=== PATIENT | male | born 2000 | race Two or more races ===

== ENCOUNTER 2025-04-28 04:39 | Emergency (ER) | payer MEDICAID, SELFPAY ==
[2025-04-28 04:50] VITALS: BP 119/84; PULSE 88; RESP 19; TEMP 36.7; O2SAT 100
--- NOTE | 2025-04-28 04:51 | EKG_ITS ---
[facility] Test Date: 2025-04-28 Pat Name: CHRISTIN MÉNDEZ Department: Room: - Gender: Male Pulmonology Technician: : [id number] Requested By: Rick Wilkins Order Number: [id number] Reading MD: Rick Wilkins Measurements Intervals Bruce Rate: 85 P: 80 FL: 157 QRS: 73 QRSD: 86 T: 57 QT: 345 QTc: 410 Interpretive Statements SINUS RHYTHM POSSIBLE LEFT ATRIAL ENLARGEMENT [-0.1mV P-WAVE IN V1/V2] ST ELEVATION, PROBABLY EARLY REPOLARIZATION [ST ELEVATION WITH NORMALLY INFLECTED T-WAVE] No previous ECG available for comparison /store/S0/[id number].pdf
--- NOTE | 2025-04-28 05:16 | XR_ITS ---
Examination: PA chest single view Technique: Upright PA chest single view Date and time: April 28, 2025, 0519 hrs. Indications: Patient fell today with into the chest, chest pain. Findings: Normal heart size. No pneumothorax. Clavicles ribs appear intact Impression: No pneumothorax pulmonary contusion or hemothorax.
--- NOTE | 2025-04-28 05:16 | XR_ITS ---
Examination: Shoulder,left, 3 views Technique: Shoulder AP internal rotation, AP external rotation, Y view shoulder, 3 views Exam date and time :There is 2024 hrs. Indications: Patient fell today with injury to the shoulder, shoulder pain. Findings: No shoulder fracture or dislocation Minimal 2 mm offset at the AC joint Impression: 2 mm offset at the AC joint, clinical correlation advised
--- NOTE | 2025-04-28 05:17 | PD.EDRME ---
Rapid Medical Screening Exam [facility] Arrival date/time: 04/28/25 04:39 25M with history of marijuana use presents to ED with syncopal episode while playing video games in his room today. Patient woke up about 30 min later in the bathroom with EMS. Patient refused transport at the time. Patient states this has happened before and patient had a work-up in [place], but doesn't know why he faints. Patient complaints of head, L face/jaw, shoulder, and back pain because he states he fell to the left side. Chief Complaint: Syncope / Near Syncope Vital signs: Vital Signs Temperature 98.1 F 04/28/25 04:50 Pulse Rate 88 04/28/25 04:50 Respiratory Rate 19 04/28/25 04:50 Blood Pressure 119/84 04/28/25 04:50 Pulse Oximetry (%) 100 04/28/25 04:50 Oxygen Delivery Method Room Air 04/28/25 04:50
[2025-04-28 05:52] LABS: Basophils # (Auto) 0.1 Thou/mm3 (0.0-0.2); Basophils % (Auto) 0 % (0-2.5); Eosinophils # (Auto) 0.0 Thou/mm3 (0.0-0.5); Eosinophils % (Auto) 0 % (0-10); Hematocrit 48.7 % (41.0-53.0); Hemoglobin 17.1 g/dL (13.5-16.0); Immature Granulocytes Auto 0.15 Thou/mm3 (0.00-0.00); Lymphocytes # (Auto) 1.5 Thou/mm3 (1.0-4.8); Lymphocytes % (Auto) 8 % (10-50); Mean Corpuscular HGB Conc 35.1 g/dl (31.0-37.0); Mean Corpuscular Hemoglobin 28.8 pg (25.0-35.0); Mean Corpuscular Volume 82 fL (80-100); Monocytes # (Auto) 1.7 Thou/mm3 (0.0-0.8); Monocytes % (Auto) 9 % (0-12); Neutrophils # (Auto) 15.6 Thou/mm3 (1.8-7.7); Neutrophils % (Auto) 82 % (37-80); Nucleated Red Blood Cell # 0.00 Thou/mm3 (0.00-0.00); Nucleated Red Blood Cell % 0 /100 WBC (0); Platelet Count 338 Thou/mm3 (140-440); RDW Standard Deviation 42.7 fL (35.1-43.9); Red Blood Count 5.94 Miln/mm3 (4.50-5.90); White Blood Count 19.1 Thou/mm3 (3.8-10.6)
[2025-04-28 06:21] LABS: Collection Type, Urine Clean Catch; Squamous Epithelial Cell,Urine 0 /hpf (0-5)
--- NOTE | 2025-04-28 06:29 | XR_ITS ---
Examination: CT brain head without contrast. 2-D sagittal coronal reconstructions Date and time of exam:April 28, 2025, 1841 hrs. Indications: Ground-level fall today 30 minutes ago with loss of consciousness pain in the left side of the head CTDI: vol (mGy):47.3 DLP: (mGycm):925 Technique: Multiple CT axial sections of the brain have been obtained, 5 mm slice thickness. Contrast has not been administered. 2-D sagittal, coronal reconstructions have been obtained Low dose protocols were performed. One or more of the following dose reduction techniques were used; automated exposure control, adjustment of the mA and/or KV according to patient size, use of iterative reconstruction technique. Findings: No significant ventricular enlargement. Intra-axial or extra-axial hemorrhage density is not seen. No mass effect or midline shift Basal cisterns are not remarkable. Fourth ventricle is midline. Cranial vault intact. Impression: Negative for acute hemorrhage, mass effect or midline shift
[2025-04-28 06:36] LABS: Amphetamine/Methamp Scrn,U Negative (Negative); Barbiturate Screen,Urine Negative (Negative); Benzodiazepines Screen,Urine Negative (Negative); Benzoylecgonine Screen, Ur Negative (Negative); Fentanyl Screen,Urine Negative (Negative); Opiate Screen,Urine Negative (Negative); THC Screen,Urine Positive (Negative)
[2025-04-28 06:36] LABS: Alanine Aminotransferase 21 U/L (10-49); Albumin, Serum 5.2 gm/dL (3.5-5.0); Albumin/Globulin Ratio 2.1 (1.2-2.2); Alcohol, Blood Medical < 3.0 mg/dL (0-10.0); Alkaline Phosphatase 87 U/L (46-116); Anion Gap 13 (7-16); Aspartate Amino Transferase 39 U/L (0-34); BUN/Creatinine Ratio 11 Ratio (12-20); Bilirubin,Total 0.6 mg/dL (0.3-1.2); Blood Urea Nitrogen 11 mg/dL (9-23); Calcium 9.7 mg/dL (8.3-10.6); Calcium (Corrected) 9.7 mg/dL (8.5-10.1); Carbon Dioxide 18.8 mMol/L (20.0-31.0); Chloride 107 mMol/L (98-107); Creatinine (Component) 1.0 mg/dL (0.6-1.3); Estimated Creatinine Clearance 86.9 mL/min (>60); Globulin 2.5 gm/dL (2.3-3.5); Glucose 80 mg/dL (74-106); Osmolality,Calculated 275 (275-295); Potassium 3.5 mMol/L (3.4-5.1); Sodium 139 mMol/L (136-145); Total Protein 7.7 gm/dL (5.7-8.2); Troponin I < 0.020 ng/mL (0.0-0.045); eGFR > 60 See Note
[2025-04-28 06:47] LABS: Amorphous Crystals,Urine Present (Absent); Bilirubin,Urine Negative (Negative); Blood,Urine 1+ (Negative); Clarity,Urine Turbid (Clear/Hazy); Color,Urine Lt-Yellow (Lt Yel-Yel); Culture Indicated,Urine Not Indicated; Glucose, Urine Negative (Negative); Ketones,Urine 2+ (Negative); Leukocyte Esterase,Urine Negative (Negative); Nitrite,Urine Negative (Negative); PH,Urine 6.0 (5.0-7.0); Protein,Urine Trace (Neg - Trace); RBC,Urine 4 /hpf (0-3); Specific Gravity,Urine 1.025 (1.001-1.035); Urobilinogen,Urine Negative mg/dL (0.0-1.0); WBC,Urine 5 /hpf (0-5)
[2025-04-28 08:01] VITALS: BP 118/81; PULSE 86; RESP 18; TEMP 36.7; O2SAT 100
[2025-04-28 08:10] VITALS: BP 118/81; PULSE 61; RESP 16; TEMP 36.5; O2SAT 98
--- NOTE | 2025-04-28 08:16 | EDNOTE_ITS ---
ED Syncope RME/HPI General Chief Complaint: Syncope / Near Syncope Stated Complaint: LEFT SHOULDER, HEAD AND BACK PAIN AFTER FAINTING Time Seen by Provider: 04/28/25 08:17 Arrival date/time: 04/28/25 04:39 RME / HPI RME / HPI narrative: 04/28/25 04:39 25M with history of marijuana use presents to ED with syncopal episode while playing video games in his room today. Patient woke up about 30 min later in the bathroom with EMS. Patient refused transport at the time. Patient states this has happened before and patient had a work-up in [place], but doesn't know why he faints. Patient complaints of head, L face/jaw, shoulder, and back pain because he states he fell to the left side. DR. YANICK MA ED EVALUATION 25 year old male with no chronic medical history presents to the ED for evaluation following syncopal episode today. States he was sitting on a chair playing video games and next thing he recalls is waking on the floor surrounded by EMS personnel. Reportedly had experienced this before and had a work-up performed in [place]. In the ED, he complains of pain to his head, left shoulder, and back. Denies pain to his neck, chest, abdomen, hips, or lower extremities. Denies recent illness, fevers, chills, cough, sore throat, nasal congestion, n/v/d, or urinary symptoms. Related Data Allergies Allergy/AdvReac Type Severity Reaction Status Date / Time No Known Allergies Allergy Verified 04/28/25 04:44 Review of Systems Review of Systems Systems Reviewed: All systems reviewed, normal except as documented Past Medical History Past Medical History NEUROLOGIC: Negative Neurological Disorders CARDIAC: Negative Cardiac Disorders RESPIRATORY: Negative Respiratory Disorders GENITOURINARY: Negative Genitourinary Disorders MUSCULOSKELETAL: Positive Scoliosis Family History FAMILY HISTORY: Negative Family Cardiac Disorders, Family Cancer, Family Surgery or Family Anesthesia Reaction Social History SMOKING STATUS: Former smoker ED Exam Narrative Physical exam: GENERAL APPEARANCE: alert and oriented x 4, well-developed, well-nourished, no acute distress HEENT: Normocephalic, atraumatic; pupils equal, round, reactive to light; EOMI; mucous membranes pink, moist; oropharynx clear NECK: Supple LUNGS: CTABL; no wheezes, no rales, no rhonchi HEART: Regular rate, regular rhythm; normal S1, S2; no murmurs ABDOMEN: non distended; normal BS; soft, no tenderness, no guarding, no rebound; no masses, no organomegaly, no hernia BACK: no CVA tenderness EXTREMITIES: atraumatic; no edema NEUROLOGIC: awake; alert and oriented x4; cranial nerves II-XII grossly intact; no focal sensory or motor deficits PSYCHIATRIC: appropriate mood and affect SKIN: warm, dry, normal color; no rashes Course Quality Measures none Orders Category Date Time Status Blood glucose [Bedside Blood Glucose] NOW Care 04/28/25 04:51 Completed EKG (ED ONLY) *Do not use* NOW Care 04/28/25 04:[address] head/brain wo con Stat Exams 04/28/25 05:[address] head/brain wo con Stat Exams 04/28/25 06:29 Completed EKG (ED Only) Stat Exams 04/28/25 04:51 Draft XR chest 1V portable Stat Exams 04/28/25 05:16 Completed XR shoulder LT min 2V Stat Exams 04/28/25 05:16 Completed Alcohol, Blood Medical Stat Lab 04/28/25 05:45 Completed CBC Stat Lab 04/28/25 05:45 Completed Comprehensive Metabolic Panel Stat Lab 04/28/25 05:45 Completed Drug Screen,Urine Stat Lab 04/28/25 06:07 Completed Troponin I Stat Lab 04/28/25 05:45 Completed Urinalysis, C/S if Indicated Stat Lab 04/28/25 06:07 Completed Vital Signs Vital signs: Vital Signs Temperature 98.1 F 04/28/25 04:50 Pulse Rate 88 04/28/25 04:50 Respiratory Rate 19 04/28/25 04:50 Blood Pressure 119/84 04/28/25 04:50 Pulse Oximetry (%) 100 04/28/25 04:50 Oxygen Delivery Method Room Air 04/28/25 04:50 Pulse ox is 100% on room air which is adequate. Syncope MDM Narrative MDM Narrative:: Eva Nieto am scribing for and in the presence of Dr. Britt. Patient data External records reviewed:: EMS form Clinical information provided by:: patient and EMS Social determinants that could affect healthcare access:: substance use (Marijuana ) Patient has the following chronic illnesses:: None reported How is presenting disease/condition affected by chronic disease/condition?: no chronic disease Evaluation data The following diagnostics were reviewed and interpreted by me:: lab results, radiology exam(s) and EKG tracing(s) (EKG @ 0458 NSR, rate 85, no acute ischemic changes ) Lab and/or radiology exams considered but not ordered:: None Interpretation Summary: Ordering Physician: Rick Wilkins PA-C Date of Service: 04/28/25 Procedure(s): XR chest 1V portable Accession Number(s): [id number] cc: John Christensen MD; Ashish Benitez MD; Rick Wilkins PA-C~ Examination: PA chest single view Technique: Upright PA chest single view Date and time: April 28, 2025, 0519 hrs. Indications: Patient fell today with into the chest, chest pain. Findings: Normal heart size. No pneumothorax. Clavicles ribs appear intact Impression: No pneumothorax pulmonary contusion or hemothorax. Dictated By: Ashish Benitez MD Signed By: <Electronically signed by Ashish Benitez MD in OV> 04/28/25 0752 Ordering Physician: Rick Wilkins PA-C Date of Service: 04/28/25 Procedure(s): XR shoulder LT min 2V Accession Number(s): [id number] cc: John Christensen MD; Ashish Benitez MD; Rick Wilkins PA-C~ Examination: Shoulder,left, 3 views Technique: Shoulder AP internal rotation, AP external rotation, Y view shoulder, 3 views Exam date and time :There is 2024 05 hrs. Indications: Patient fell today with injury to the shoulder, shoulder pain. Findings: No shoulder fracture or dislocation Minimal 2 mm offset at the AC joint Impression: 2 mm offset at the AC joint, clinical correlation advised Dictated By: Ashish Benitez MD Signed By: <Electronically signed by Ashish Benitez MD in OV> 04/28/25 0751 Ordering Physician: Malia (SHARI),Adin MCCARTHY Date of Service: 04/28/25 Procedure(s): CT head/brain wo con Accession Number(s): [id number] cc: Malia (SHARI),Adin MCCARTHY; John Christensen MD; Ashish Benitez MD~ Examination: CT brain head without contrast. 2-D sagittal coronal reconstructions Date and time of exam:April 28, 2025, 184 hrs. Indications: Ground-level fall today 30 minutes ago with loss of consciousness pain in the left side of the head CTDI: vol (mGy):47.3 DLP: (mGycm):925 Technique: Multiple CT axial sections of the brain have been obtained, 5 mm slice thickness. Contrast has not been administered. 2-D sagittal, coronal reconstructions have been obtained Low dose protocols were performed. One or more of the following dose reduction techniques were used; automated exposure control, adjustment of the mA and/or KV according to patient size, use of iterative reconstruction technique. Findings: No significant ventricular enlargement. Intra-axial or extra-axial hemorrhage density is not seen. No mass effect or midline shift Basal cisterns are not remarkable. Fourth ventricle is midline. Cranial vault intact. Impression: Negative for acute hemorrhage, mass effect or midline shift Dictated By: Ashish Benitez MD Signed By: <Electronically signed by Ashish Benitez MD in OV> 04/28/25 0716 Medications / Prescriptions Medications or Prescriptions considered but not ordered:: None Medication administrations:: None Consultations Consultation(s) initiated? (list below): No Diagnosis Syncope Differential Diagnosis: syncope due to orthostatic hypotension, vasovagal syncope, subarachnoid hemorrhage and dehydration Most likely diagnosis given after review of the tests above:: Syncope Admission Indicated Admission indicated?: not indicated Admission Request Was there a request for admission?: No Disposition Plan Disposition Plan: Discharge Discharge Attestation Discharge Attestation: The patient and all family members were given an opportunity to ask questions and understood the discharge instructions. Discharge instructions specifically effects, indications for sooner follow up or return to the emergency department, and the expected course of current diagnosis. Patient condition: Stable Discharge Plan Plan Patient Disposition: HOME (Self Care) Prescriptions/Referrals Referrals: John Christensen MD [Primary Care Provider, Family Practice] - In 1 week Problem List Clinical Impression: Syncope Patient/Caregiver Discharge Instructions Education Materials: Treating Syncope: Prevention, ED Fainting, Uncertain Cause Print Language: Nicaraguan Stand Alone Forms: Elvi Award Info., Patient Portal Info Letter
[2025-04-28 10:39] VITALS: BP 113/73; PULSE 61; RESP 18; O2SAT 97
== END 2025-04-28 10:45 | disposition home or self-care (01) ==
PROVIDERS: Physician Assistant; Emergency Provider Emergency Medicine; PCP Family Medicine
DX: R55 Syncope and collapse (principal); M25.512 Pain in left shoulder; R51.9 Headache, unspecified; M54.9 Dorsalgia, unspecified
CPT/HCPCS: 36415; 70450; 71045; 73030; 80053; 80307; 80320; 81001; 84484; 85025; 93005; 99284; G0480